=== PATIENT | male | born 1975 | race Caucasian/White ===

== ENCOUNTER 2019-10-27 14:04 | Outpatient (CLI) | payer BC, SELFPAY ==
--- NOTE | ~2019-10-27 | US_ITS ---
EXAMINATION: US right upper quadrant DATE: 10/27/2019 14:56 INDICATION: Right upper quadrant pain TECHNIQUE: Multiple grayscale and Doppler ultrasound images of the abdomen were obtained. COMPARISON: None available FINDINGS: Bowel gas obscures visualization of the pancreas. The visualized portions of the pancreas a re unremarkable. The liver is normal with normal echogenicity and echotexture. No surface nodularity. Normal hepatopetal flow in the main portal vein. Stones are present in the nondistended gallbladder. There is no gallbladder wall thickening or pericholecystic fluid. The normal common bile duct measur es 4 mm. Sonographic Hodgson sign is positive. IMPRESSION: 1. Cholelithiasis and positive sonographic Hodgson sign without evidence of gallbladder wall thickenin g or pericholecystic fluid. Findings are equivocal for cholecystitis. Consider further evaluation wit h nuclear hepatobiliary scan. Reviewed, dictated and finalized at location A. IMPRESSION: 1. Cholelithiasis and positive sonographic Hodgson sign without evidence of gall bladder wall thickening or pericholecystic fluid. Findings are equivocal for ch olecystitis. Consider further evaluation with nuclear hepatobiliary scan.
== END 2019-10-27 14:05 | disposition home or self-care (01) ==
PROVIDERS: PCP Internal Medicine; Visit Provider Physician Assistant
DX: K80.20 Calculus of gallbladder without cholecystitis without obstruction (principal)
CPT/HCPCS: 76705

== ENCOUNTER 2019-11-02 09:49 | Outpatient (CLI) | payer BC, SELFPAY ==
[2019-11-02 19:30] LABS: SARS-CoV-2 RNA PCR Negative
== END 2019-11-02 09:50 | disposition home or self-care (01) ==
LOC: ANHCOVIDDT 09:49
PROVIDERS: PCP Internal Medicine; Visit Provider Surgery
DX: Z01.812 Encounter for preprocedural laboratory examination (principal); Z11.59 Encounter for screening for other viral diseases
CPT/HCPCS: 87635; C9803; U0003

== ENCOUNTER 2019-11-04 02:55 | Day surgery (SDC) | payer BC, SELFPAY ==
[2019-11-02 10:39] VITALS: BMI 30.9
--- NOTE | 2019-11-03 12:37 | P.PNAN_ITS ---
Anes - Initial Pre Proc Eval Procedure: Operation Date: 11/04/19 13:00 Proposed Procedures p Laparoscopic Cholecystectomy - Camron Low MD Date/Time: 11/03/19 12:37 Surgeon: Camron Low MD Pre Op Diagnosis: Cholecystitis With Stones Patient Data Age: 43 Gender: M Height: 5 ft 3 in Weight: 79.38 kg Allergies Allergy/AdvReac Type Severity Reaction Status Date / Time No Known Allergies Allergy Mild Verified 11/02/19 10:40 Home Medications Medication Instructions Recorded Confirmed Type lisinopril 20 1 tablet PO DAILY #90 tablet 06/24/19 11/04/19 Rx mg-hydrochlorothiazide 25 mg tablet hydrocodone 5 mg-acetaminophen 325 1 tablet PO Q6H PRN #20 tablet 10/27/19 11/04/19 Rx mg tablet Patient hx anesthesia problems: none Family hx anesthesia problems: none [facility] Social History Social History (Reviewed 11/02/19 @ 09:08 by Maia Keith [facility]) Smoking packs per day: 1 Smoking cigarettes per day: 20.0 Years smoked: 20 Smoking pack-years: 20.00 Smoking status: Current every day smoker Tobacco type: cigarettes Second hand tobacco smoke exposure: Yes Alcohol intake: never Spiritual care concerns: No Anes - Eval Final PreProcedure Day of Procedure 11/03/19 12:37 Patient weight: overweight Heart: regular rate and rhythm Lungs: clear to auscultation Airway: Mallampati scale class II Neurological: alert and oriented Last oral intake: >/= 8 hours ASA classification: II Emergent: no Anesthetic plan: proceed Anesthesia type and monitoring: general ETT and standard monitoring Informed Consent: The patient's anesthetic plan and its attendant risks and benefits were discussed with the patient/family/POA. Questions were solicited and answers provided to the satisfaction of the patient/family/POA.
[2019-11-04] VITALS (7 sets, daily range): BP systolic 109–172; BP diastolic 87–108; PULSE 78–93; RESP 16–20; TEMP 36.2–36.7; O2SAT 96–99
--- NOTE | 2019-11-04 08:44 | ECG_ITS ---
Measurements Intervals [place] Rate: 87 P: -9 AR: 149 QRS: -39 QRSD: 91 T: -4 QT: 352 QTc: 424 Interpretive Statements SINUS RHYTHM LEFT AXIS DEVIATION DELAYED PRECORDIAL R/S TRANSITION BORDERLINE ST-T WAVE ABNORMALITY- INFERIOR LEADS BORDERLINE ECG Electronically Signed On 11-04-2019 16:02:07 CDT by Tyrel Thomas D.O.
[2019-11-04] MEDS: LACTATED RINGERS 1,000 ML 30 ML IV CONT ×2 (11:40→14:06)
[2019-11-04] MEDS: KETOROLAC 15 MG/ML VIAL (*BKC) IV PUSH (11:53)
[2019-11-04] MEDS: ACETAMINOPHEN 500 MG TABLET 1000 MG PO (11:53)
[2019-11-04 12:05] LABS: Amylase 67 U/L (30-110); Anion Gap 9 mmol/L (8-16); Blood Urea Nitrogen 11 mg/dL (9-20); Calcium 8.9 mg/dL (8.4-10.2); Carbon Dioxide 25 mmol/L (22-30); Chloride 100 mmol/L (98-107); Estimated CRCL calculation 145 ml/min; Estimated Glomerular Filt Rate > 60; Glucose 256 mg/dL (75-110); Lipase 140 U/L (23-300); Potassium 4.2 mmol/L (3.4-5.0); Sodium 134 mmol/L (137-145)
[2019-11-04 12:17] LABS: Alanine Aminotransferase 44 U/L (4-50); Albumin Level 4.6 g/dL (3.5-5.1); Alkaline Phosphatase 69 U/L (38-126); Aspartate Amino Transferase 33 U/L (17-59); Bilirubin,Total 0.6 mg/dL (0.2-1.3)
--- NOTE | 2019-11-04 12:41 | WPDHPUPDATE1 ---
History and Physical Update Update Date/Time: 11/04/19 12:41 History and Physical has been reviewed, including an updated exam of the patient. There are NO changes in the patient's condition. Risks, benefits, and alternatives have been discussed and questions answered. Patient agrees to proceed with procedure.
[2019-11-04] MEDS: ceFAZolin 2 GM/D5W 50 ML 2 GM/50 ML BAG IVPB (13:05)
[2019-11-04] MEDS: BUPIVACAINE/EPINEPHRINE 0.5% 30 ML VIAL INFILTRATE (13:32)
--- NOTE | 2019-11-04 14:18 | P.OP_ITS ---
Procedure Note - Detailed Date of procedure: 11/04/19 Pre-op diagnosis: Cholecystitis With Stones Chronic cholecystitis, cholelithiasis Post-op diagnosis: same Procedure performed: Laparoscopic cholecystectomy Description of procedure: The patient was taken to surgery and induced into general anesthesia. The abdomen was prepped and draped. Trocars were placed in the usual fashion using 0.5% Marcaine with epinephrine and applied Medical optical trocars. A 5 millimeter camera was used. The gallbladder was decompressed with a laparoscopic aspirator. The cholecystotomy was closed with a Vicryl endo-loop. The gallbladder was retracted anterosuperiorly. Adhesions to the gallbladder were taken down so that the cholecystohepatic triangle was exposed. Traction was placed on the infundibulum . The cystic duct and cystic artery were dissected out very clearly. The gallbladder was dissected off the liver at its lower 3rd. Critical view was achieved. We securely clipped and divided the cystic duct and cystic artery. The gallbladder was then further retracted so that the peritoneal attachments to the liver could be divided. Once the gallbladder was freed entirely, it was placed in an Endo-Catch bag and retrieved through the 10 11 epigastric trocar site. The epigastric trocar was then replaced. We reviewed the right upper quadrant. It was irrigated and suctioned. All looked good with no evidence of bleeding or bile leakage. We evacuated CO2 and removed the trocar sleeves. The fascia at the epigastric trocar site was closed with 0 Vicryl suture. Skin wounds were closed with subcuticular 4 O Monocryl skin suture. The wounds were dressed with Exofin surgical adhesive. Patient was awakened and taken to recovery in good condition. Sponge and needle counts were correct x2. Anesthesia: GETA and local (0.5% Marcaine with epinephrine) Surgeon: Camron Low MD Merchandising Specialist: Justin MCMAHON Estimated blood loss (mL): 5 Drains: No Packing: No Pathology: yes (Gallbladder) Complications: None Condition: stable Disposition: PACU Findings: Chronic inflammation, several gallstones noted. No biliary ductal dilatation, no liver abnormalities.
== END 2019-11-04 15:50 | disposition home or self-care (01) ==
PROVIDERS: PCP Internal Medicine; Visit Provider Surgery
PROC: 0FT44ZZ Resection of Gallbladder, Percutaneous Endoscopic Approach (ICD-10-PCS; CPT 47562; principal; 2019-11-04 13:00)
DX: K80.10 Calculus of gallbladder with chronic cholecystitis without obstruction (principal); K82.8 Other specified diseases of gallbladder; I10 Essential (primary) hypertension; J45.909 Unspecified asthma, uncomplicated; F17.210 Nicotine dependence, cigarettes, uncomplicated; Z79.899 Other long term (current) drug therapy
CPT/HCPCS: 47562; 36415; 80048; 80076; 82150; 83690; 86850; 86900; 86901; 88304; 93005; A9270; C1713; J0690; J1100; J1885; J2250; J2405; J2704; J2710; J3010; J7030; J7120

== ENCOUNTER 2020-08-25 15:52 | Emergency (ER) | payer BC, SELFPAY ==
[2020-08-25 16:03] VITALS: BP 189/106; PULSE 77; RESP 16; O2SAT 99
[2020-08-25 16:05] LABS: Glucose Point of Care 345 mg/dl (65-105)
--- NOTE | 2020-08-25 16:08 | ED.GENADULT ---
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 Patient also complains of intermittent blurry vision, increased thirst. Denies any nausea vomiting or diarrhea. Denies any abdominal pain or chest pain. States that he just feels bad. Has been going on for several days Related Data Allergies Allergy/AdvReac Type Severity Reaction Status Date / Time No Known Allergies Allergy Mild Verified 08/25/20 16:02 Review of Systems Review of Systems: All systems reviewed & are unremarkable except as noted in HPI and below Constitutional: Constitutional: Reports as per HPI, Denies chills, Reports fatigue and Denies fever(s) Eyes: Eyes: Reports as per HPI ENT: Reports system reviewed and no additional complaints, except as documented, Denies dysphagia, Denies dizziness, Denies nasal congestion and Denies sore throat Cardiovascular: Cardiovascular: Reports no additional cardiovascular complaints and Denies chest pain Respiratory: Respiratory: Reports no additional respiratory complaints, Denies cough and Denies dyspnea Gastrointestinal: Gastrointestinal: Reports no additional gastrointestinal complaints, Denies abdominal pain, Denies nausea and Denies vomiting Genitourinary: Genitourinary: Reports as per HPI and Reports urinary frequency Musculoskeletal: Musculoskeletal: Reports as per HPI, Denies back pain, Reports myalgias and Denies muscle cramps Integumentary/Breasts: Skin/Breast: Reports system reviewed and no additional complaints, except as docu, Denies erythema and Denies rash Neurologic: Reports system reviewed and no additional complaints, except as documented, Denies dizziness, Denies syncope, Denies headache(s), Denies focal weakness and Denies numbness Psychiatric: Psychiatric: Reports no additional psychiatric complaints Endocrine: Endocrine: Reports as per HPI, Reports excessive sweating, Reports fatigue, Reports polydipsia and Reports polyuria Hematologic/Lymphatic: Hematologic/Lymphatic: Reports no additional hematologic/lymphatic complaints Allergic/Immunologic: Allergic/Immunologic: Reports no additional allergic/immunologic complaints PMFSH Past Medical History Medical History (Updated 08/25/20 @ 19:54 by Josette Ryan) Asthma Hypertension Surgical History Surgical History H/O shoulder surgery Family History Family History Grandparent Family history of mental disorder Family history of Alzheimer's disease Family history of dementia Family history of coronary artery disease Acute myocardial infarction Father Hypertension Family history of diabetes mellitus in first degree relative Family history of coronary artery disease Acute myocardial infarction Mother Family history of Alzheimer's disease Other Family history of elevated blood lipids Social History Social History Smoking packs per day: 1 Smoking cigarettes per day: 20.0 Years smoked: 20 Smoking pack-years: 20.00 Smoking status: Current every day smoker Tobacco type: cigarettes Second hand tobacco smoke exposure: Yes Alcohol intake: never Spiritual care concerns: No Comments At the time of my signature, I reviewed and agree with the nursing past medical, surgical, social, and family history. There is no relevant family history pertinent to the patient complaint. Exam Const: General: healthy appearing, no acute distress and
--- NOTE | 2020-08-25 17:32 | PC.NURSE ---
1610: patient is unsure if he will sign AMA or proceed to the hospital, he elects to speak with his by phone.
--- NOTE | 2020-08-25 17:33 | PC.NURSE ---
1620: patient returned to room and will go to [place] [facility] for further evaluation and treatment.
== END 2020-08-25 16:25 | disposition short-term general hospital (02) ==
LOC: EXPGLEN 15:56
PROVIDERS: Emergency Provider Nurse Practitioner; PCP Physician Assistant
DX: R73.9 Hyperglycemia, unspecified (principal); I10 Essential (primary) hypertension; F17.210 Nicotine dependence, cigarettes, uncomplicated; J45.909 Unspecified asthma, uncomplicated
CPT/HCPCS: 82948; 99212; G0463